=== PATIENT | female | born 1945 | race Caucasian/White ===

== ENCOUNTER → 2024-12-15 13:00 | Outpatient (REF) | payer MEDICARE, BC, SELFPAY | LOC: WDC 13:00 | PROVIDERS: ATTENDING PHYSICIAN Family Medicine | DX: Z12.31 Encounter for screening mammogram for malignant neoplasm of breast (principal) | CPT/HCPCS: 77063; 77067 ==

== ENCOUNTER → 2025-07-23 10:21 | Outpatient (REF) | payer MEDICARE, BC, SELFPAY | LOC: RAD 10:21 | PROVIDERS: ATTENDING PHYSICIAN Family Medicine | DX: M85.859 Other specified disorders of bone density and structure, unspecified thigh (principal); M81.0 Age-related osteoporosis without current pathological fracture | CPT/HCPCS: 77080 ==